=== PATIENT | female | born 1940 | race Caucasian/White ===

== ENCOUNTER 2019-03-20 08:20 | Observation (INO) ==
[2019-03-20] MEDS ORDERED: ANCEF 1 GRAM IV PREMIX* 1 G/50 ML BAG IV ONE (08:31)
[2019-03-20] MEDS ORDERED: LR 1000 ML IV 1,000 ML ONE ×2 (08:31→11:18)
[2019-03-20] MEDS ORDERED: DECADRON INJ ONE ×2 (09:00→15:41)
[2019-03-20] MEDS ORDERED: ZEMURON ONE ×2 (09:00→15:41)
[2019-03-20] MEDS ORDERED: MORPHINE SULFATE INJ 10 MG ONE (09:00)
[2019-03-20] MEDS ORDERED: FENTANYL INJ 100 mcg ONE (09:00)
[2019-03-20] MEDS ORDERED: BACTROBAN TOPICAL OINT ONE (09:37)
[2019-03-20] MEDS ORDERED: DILAUDID INJ IVP PRN (09:46)
[2019-03-20] MEDS ORDERED: BENADRYL INJ 50 MG VIAL IVP PRN (09:46)
[2019-03-20] MEDS ORDERED: REGLAN INJ 10 MG VIAL IVP PRN (09:46)
[2019-03-20] MEDS ORDERED: ZOFRAN INJ 4 MG VIAL IVP PRN (09:46)
[2019-03-20] MEDS ORDERED: PHENERGAN INJ 25 MG IM PRN (09:46)
[2019-03-20] MEDS ORDERED: ACCUNEB 1.25 MG NEBULE NEB ONE (12:24)
[2019-03-20] MEDS ORDERED: MORPHINE SULFATE INJ 2 MG INJ IVP PRN (12:28)
[2019-03-20] MEDS ORDERED: PROVENTIL NEB TX 0.083% 2.5MG/ 3ML NEB ONE (12:30)
[2019-03-20] MEDS ORDERED: SALINE 0.9% 3 ML NEB TX NEB ONE ×2 (13:40→14:00)
[2019-03-20] MEDS ORDERED: S2 RACEMIC EPINEPHRINE NEB ONE ×2 (13:40→14:00)
[2019-03-20] MEDS: D5 1/2 NS 1000 ML 1,000 ML IV SCH (14:03)
--- NOTE | 2019-03-20 14:17 | RAD ---
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 The heart is upper limits normal in size. The bo are normal. The aorta is calcified. The interstitium is prominent suggestive of interval development of mild interstitial edema. No alveolar edema, alveolar infiltrates, or pleural effusions are identified. There is minimal subsegmental atelectasis in the left lung base. The bony thorax is unremarkable. IMPRESSION: Interval development of minimal interstitial edema when compared with the prior examination Reported By:
[2019-03-20 14:28] VITALS: BMI 28.8
[2019-03-20] MEDS ORDERED: SOLU-Medrol 40 MG VIAL IVP ONE (14:44)
[2019-03-20] MEDS ORDERED: SOLU-Medrol 40 MG VIAL ONE (14:44)
[2019-03-20] MEDS ORDERED: ATIVAN INJ 2 MG VIAL ONE (14:47)
[2019-03-20] MEDS ORDERED: NS IRRIGATION 3000 ML ONE (14:52)
[2019-03-20] MEDS ORDERED: ATIVAN INJ 2 MG VIAL IVP SCH (15:00)
[2019-03-20 15:14] LABS: ABG HCO3 26.1 mmol/L (22-26)
[2019-03-20 15:16] LABS: ABG ALLEN TEST POS
[2019-03-20 15:25] LABS: BASOPHILS % (AUTO) 0.6 % (0.2-1.0); EOSINOPHILS # (AUTO) 0.1 x10^3/uL (0.0-0.2); EOSINOPHILS % (AUTO) 1.7 % (0.9-2.9); HEMATOCRIT 40.9 % (36.0-47.0); HEMOGLOBIN 13.6 g/dL (12.0-16.0); LYMPHOCYTES # (AUTO) 0.8 X10^3/uL (1.3-2.9); LYMPHOCYTES % (AUTO) 13.4 % (21.0-51.0); MEAN CORPUSCULAR HEMOGLOBIN 30.8 pg (27.0-34.0); MEAN CORPUSCULAR HGB CONC 33.1 g/dL (33.0-35.0); MONOCYTES # (AUTO) 0.1 x10^3/uL (0.3-0.8); MONOCYTES % (AUTO) 1.5 % (0.0-13.0); NEUTROPHILS # (AUTO) 4.8 x10^3/uL (2.2-4.8); NEUTROPHILS % (AUTO) 82.8 % (42.0-75.0); PLATELET COUNT 141 X10^3/uL (150.0-450.0); RED BLOOD COUNT 4.41 X10^6/uL (3.5-5.4); RED CELL DISTRIBUTION WIDTH 14.8 % (11.6-16.5); WHITE BLOOD COUNT 5.8 X10^3/uL (3.6-10.0)
[2019-03-20 15:30] LABS: ALBUMIN 3.3 g/dL (3.4-5.0); CALCIUM 8.5 mg/dL (8.5-10.1); CARBON DIOXIDE 27.8 mmol/L (21-32); COR CA(FOR HYPOALB) 9.1 mg/dL (8.5-10.1); CREATININE 1.27 mg/dL (0.55-1.02); TOTAL PROTEIN 6.7 g/dL (6.4-8.2)
[2019-03-20] MEDS ORDERED: ROBINUL ONE (15:41)
[2019-03-20] MEDS ORDERED: EPHEDRINE SULFATE INJ ONE (15:41)
[2019-03-20] MEDS ORDERED: NEOSTIGMINE INJ ONE (15:41)
[2019-03-20] MEDS ORDERED: XYLOCAINE 1 % (PLAIN) ONE (15:41)
[2019-03-20] MEDS ORDERED: ZOFRAN INJ 4 MG VIAL ONE (15:41)
[2019-03-20] MEDS ORDERED: TORADOL 30 MG VIAL ONE (15:41)
[2019-03-20] MEDS ORDERED: DIPRIVAN VIAL ONE (15:41)
[2019-03-20] MEDS ORDERED: VERSED ONE (15:41)
[2019-03-20] MEDS ORDERED: ULTANE GAS ONE (15:41)
[2019-03-20] MEDS ORDERED: QUELICIN (OR ANECTINE) ONE (15:41)
[2019-03-20] MEDS ORDERED: ATIVAN INJ 2 MG VIAL IVP PRN (18:10)
[2019-03-21] MEDS: D5 1/2 NS 1000 ML 1,000 ML IV SCH (02:26)
[2019-03-21 06:08] LABS: BASOPHILS % (AUTO) 0 % (0.2-1.0); HEMATOCRIT 39.2 % (36.0-47.0); HEMOGLOBIN 13.1 g/dL (12.0-16.0); LYMPHOCYTES # (AUTO) 0.9 X10^3/uL (1.3-2.9); LYMPHOCYTES % (AUTO) 9.2 % (21.0-51.0); MEAN CORPUSCULAR HEMOGLOBIN 30.8 pg (27.0-34.0); MEAN CORPUSCULAR HGB CONC 33.5 g/dL (33.0-35.0); MEAN CORPUSCULAR VOLUME 91.9 fL (80.0-100.0); MEAN PLATELET VOLUME 8.8 fL (7.4-11.0); MONOCYTES # (AUTO) 0.4 x10^3/uL (0.3-0.8); MONOCYTES % (AUTO) 3.8 % (0.0-13.0); NEUTROPHILS # (AUTO) 8.1 x10^3/uL (2.2-4.8); PLATELET COUNT 126 X10^3/uL (150.0-450.0); RED BLOOD COUNT 4.26 X10^6/uL (3.5-5.4); RED CELL DISTRIBUTION WIDTH 14.8 % (11.6-16.5); WHITE BLOOD COUNT 9.3 X10^3/uL (3.6-10.0)
[2019-03-21 06:26] LABS: ALBUMIN 2.9 g/dL (3.4-5.0); CALCIUM 8.6 mg/dL (8.5-10.1); CARBON DIOXIDE 26.9 mmol/L (21-32); COR CA(FOR HYPOALB) 9.5 mg/dL (8.5-10.1); CREATININE 1.26 mg/dL (0.55-1.02); TOTAL PROTEIN 6.1 g/dL (6.4-8.2)
--- NOTE | 2019-03-21 06:49 | RAD ---
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 The heart is upper limits normal in size. No congestive heart failure is present on today's examination. No acute alveolar infiltrates are identified. There are some mild atelectatic changes in the left lower lobe. Minimal left pleural effusion may be present. The bony thorax is unremarkable. IMPRESSION: Resolution of the previously noted interstitial edema Mild atelectatic changes in the left lower lobe Reported By:
[2019-03-21] MEDS ORDERED: LOVENOX INJ 40 MG SYR SC SCH (09:00)
[2019-03-21] MEDS ORDERED: PROTONIX INJ 40 MG VIAL IVP SCH (09:00)
[2019-03-21 11:06] VITALS: BP 140/64
== END 2019-03-21 11:20 | disposition home or self-care (01) ==
LOC: SURG1 08:20 → ICU 08:20 → MED/SURG 12:48 → ICU 13:59
PROVIDERS: ADMIT Surgery; ATTEND Surgery
DX: R94.4 Abnormal results of kidney function studies; K80.10 Calculus of gallbladder with chronic cholecystitis without obstruction; Z95.0 Presence of cardiac pacemaker; Z79.01 Long term (current) use of anticoagulants; R06.03 Acute respiratory distress; J44.9 Chronic obstructive pulmonary disease, unspecified; Z79.899 Other long term (current) drug therapy; K82.8 Other specified diseases of gallbladder; J95.89 Other postprocedural complications and disorders of respiratory system, not elsewhere classified
CPT/HCPCS: 36415; 36600; 71010; 71045; 80053; 82803; 85025; 88304; 94640; 96367; 96372; 96374; 99100; A4222; C9113; G0378; J0330; J0690; J1100; J1650; J1885; J2060; J2250; J2270; J2405; J2704; J2710; J2920; J3010; J3490; J7120; J7613; S5010